=== PATIENT | male | born 1990 | race Two or more races ===

== ENCOUNTER 2023-10-23 12:30 | Emergency (ER) | payer MEDICAID ==
[~2023-10-23] VITALS: Ht 177.8 cm; Wt 82.9 kg
[2023-10-23 13:56] VITALS: BP 137/94; PULSE 66; RESP 16; TEMP 98.1; O2SAT 98
[2023-10-23] MEDS: methylPREDNISolone SOD SUCC 125 MG/2 ML VL IM ONE (14:47)
[2023-10-23] MEDS: EPINEPHrine HCL 1 MG/1 ML AMP SC ONE (14:47)
[2023-10-23] MEDS ORDERED: PRED20TA2 PO (15:07)
[2023-10-23] MEDS ORDERED: CLIN1CAP70 PO (15:07)
[2023-10-23] MEDS ORDERED: IBUP-1456 PO (15:07)
== END 2023-10-23 15:23 | disposition home or self-care (01) ==
LOC: ER 12:30
DX: T78.49XA Other allergy, initial encounter (principal); K04.7 Periapical abscess without sinus; Z79.899 Other long term (current) drug therapy; X58.XXXA Exposure to other specified factors, initial encounter
CPT/HCPCS: 96372; 99284; J0171; J2919